=== PATIENT | male | born 1995 | race Hispanic/Latino ===

== ENCOUNTER 2019-10-23 00:14 | Inpatient (IN) | payer BC ==
[2019-10-23 00:57] LABS: Absolute Lymphocytes (CBC) 2.4 K/uL (0.7-4.9); Basophils % 0.4 % (0-1.3); Hematocrit 46.4 % (39.6-49.0); Lymphocytes % 14.3 % (15.3-44.8); MPV 8.4 fL (7.6-11.3); RBC Red Blood Cell Count 5.51 M/uL (4.33-5.43)
[2019-10-23] MEDS ORDERED: NA CHLORIDE 0.9% 1,000 ML ONE ×4 (00:59→16:23)
[2019-10-23 01:00] LABS: Protime INR 1.28
[2019-10-23] MEDS ORDERED: LORazepam 2 MG/ML VIAL ONE ×3 (01:20→13:59)
[2019-10-23 01:22] LABS: ALT/SGPT 57 U/L (12-78); AST/SGOT 25 U/L (15-37); Albumin 4.7 g/dL (3.4-5.0); Alkaline Phosphatase 135 U/L (45-117); BUN Blood Urea Nitrogen 15 mg/dL (7-18); Bicarbonate 27 mmol/L (21-32); Bilirubin Direct 0.1 mg/dL (0-0.2); Bilirubin Total 0.4 mg/dL (0.2-1.0); Creatine Phosphokinase 173 U/L (39-308); Glucose Level 132 mg/dL (74-106); Potassium 4.2 mmol/L (3.5-5.1); Protein, Total 8.9 g/dL (6.4-8.2); Sodium Level 144 mmol/L (136-145)
[2019-10-23 01:33] LABS: Urine Blood 2+ (NEG); Urine Glucose NEGATIVE (NEG); Urine Protein NEGATIVE (NEG); Urine Specific Gravity >1.030 (1.005-1.030); Urine pH 5.5 (5.0-7.0)
[2019-10-23 01:58] LABS: Barbiturates NEGATIVE (NEGATIVE); Benzodiazepines NEGATIVE (NEGATIVE); Cocaine NEGATIVE (NEGATIVE); METHAMPHETAM NEGATIVE (NEGATIVE); Methadone NEGATIVE (NEGATIVE); Opiates NEGATIVE (NEGATIVE); Phencyclidine NEGATIVE (NEGATIVE); THC Cannibis NEGATIVE (NEGATIVE)
[2019-10-23] MEDS ORDERED: AZITHROMYCIN 500 MG INJ IVPB ONE ×2 (03:24→19:54)
[2019-10-23] MEDS ORDERED: NA CHLORIDE 0.9% 250 ML ONE ×3 (03:24→19:55)
[2019-10-23] MEDS ORDERED: CEFTRIAXONE/SWI 1gm 1 GM/10 ML SYR ONE (03:25)
[2019-10-23] MEDS ORDERED: RSI MEDICATION KIT IV ONE ×2 (03:27→13:50)
[2019-10-23] MEDS ORDERED: IPRATROPIUM BROM 0.5MG/2.5ML ONE ×2 (03:29→03:31)
[2019-10-23] MEDS ORDERED: ALBUTEROL 2.5 MG/3 ML NEB SOL ONE (03:30)
--- NOTE | 2019-10-23 03:32 | ER ---
Nurse's Notes [facility] Name: Long Cobos Age: 24 yrs Sex: Male : 1995 Arrival Date: 10/23/2019 Time: 00:16 Bed 23 Private MD: Diagnosis: Altered mental Status;Substance Abuse;Bilateral Pneumonia Presentation: 10/22 00:17 Chief complaint: EMS states: pt reported smoking "k2" around 1999 this evening, pt sg became weak and lethargic, unresponsive per [facility] staff who called EMS for assistance. pt alert upon arrival, confused and unable to stand to EMS stretcher, VSS in route to facility per [facility]. Coronavirus screen: Patient denies a cough. Patient denies shortness of breath or difficulty breathing. Patient denies measured and/or subjective temperature greater than 100.4F prior to today's visit. Patient denies travel on a cruise ship or to a country the [facility] currently lists as an affected area. Patient denies contact with known and/or suspected case of COVID-19. Proceed with normal triage. Ebola Screen: Patient negative for fever greater than or equal to 101.5 degrees Fahrenheit, and additional compatible Ebola Virus Disease symptoms Patient denies exposure to infectious person. Patient denies travel to an Ebola-affected area in the 21 days before illness onset. No symptoms or risks identified at this time. Initial Sepsis Screen: Does the patient meet any 2 criteria? RR > 20 per min. HR > 90 bpm. Yes Does the patient have a suspected source of infection? No. Patient's initial sepsis screen is negative. Risk Assessment: Do you want to hurt yourself or someone else? Patient reports no desire to harm self or others. Note possible ingestion of K2 reported, no other drugs or medications reported per EMS. Onset of symptoms was October 22, 2019. Mechanism of Injury: No Mechanism of Injury. Transition of care: [facility] usp unit. 00:17 Method Of Arrival: [place] [facility] [place] 00:17 Acuity: ROSA 2 sg Historical: - Allergies: 05:12 No Known Allergies; jb4 - Home Meds: 05:12 None [Active]; jb4 - PMHx: 05:12 None; jb4 - PSHx: 05:12 None; jb4 - Immunization history:: Adult Immunizations unknown. - Social history:: Smoking status: unknown Patient uses street drugs. Screenin:20 Abuse screen: Denies threats or abuse. Nutritional screening: No deficits noted. jb4 Tuberculosis screening: No symptoms or risk factors identified. Fall Risk None identified. Assessment: 00:20 General: Appears distressed, ill, Behavior is agitated, disoriented . Pain: Unable to jb4 use pain scale. Patient is disoriented. Neuro: Level of Consciousness is awake, confused, Oriented to none The right pupil is 3 mm and reactive to light, the left pupil is 2mm and non reactive to light. Correctional officers report that the patient normally has both eyes looking forward. the left eye deviates to the left. Trauma is unknown. No signs of trauma noted.. Cardiovascular: Pt is warm, and diaphoretic.. Respiratory: Airway is patent Respiratory effort is even, unlabored, Respiratory pattern is regular, symmetrical, Breath sounds are clear bilaterally. GI: No signs and/or symptoms were reported involving the gastrointestinal system. : No signs and/or symptoms were reported regarding the genitourinary system. EENT: No signs and/or symptoms were reported regarding the EENT system. Derm: Skin is intact, Skin is diaphoretic, Skin is normal, Skin temperature is warm. Musculoskeletal: Circulation, motion, and sensation intact. Range of motion: intact in all extremities. 01:11 Reassessment: Poison Control contacted. sg 01:19 Reassessment: Jessica with poison control states treatment Seizure precautions for this patient, observe for signs of Rhabdo and NM. Recommend initial EKG, if normal may repeat later depending on condition and pt symptoms, monitor labs with emphasis on electrolytes if vomiting, cardiac monitoring, supportive care based on symptoms,may administer benzos for restlessness/seizures, observation for 3-4 hours until condition and symptoms improve then may dispo accordingly. . 02:06 Reassessment: PT is back from CT. Appears to be resting more calmly after Ativan jb4 administration. Is still disoriented. Respirations are even and unlabored. No apparent change in mental status. No s/s of pain or distress noted. Correctional officers remain at the bedside. 02:56 Reassessment: Pt still appears to be disoriented. Still will no verbally respond. Pt is jb4 now responding to yes or no questions with nods. Is now resting more calmly in bed and starting to follow commands. Suctioned pt's mouth and raised up in the bed. Crackles noted ARIS, wheezes noted to the left lung penn, respirations are even and unlabored. 03:01 Reassessment: Provider notified of change in condition. See MAR for orders. jb4 04:00 Reassessment: PT remains on bi-pap. Appears to be more agitated with mask on. Heart jb4 rate and respiratory rate remain elevated longer. Provider notified. 04:45 Reassessment: Pt taken of Bi-pap per Dr. Rider. Pt placed on 2L NC. Appears more jb4 relaxed. HR and RR decreased. RR 18/min, HR 108/min No s/s of pain or distress noted. Crackles remain ARIS, are not as prominent. Wheezing in the Left lung penn has diminished. 05:00 Reassessment: cavalry officer contacted facility medical services to obtain Pt's jb4 Medical history. Officers reports medical services states that he has no medical history or allergies. Pt remains diaphoretic however it is not as severe. PT will now open his eyes to verbal stimuli, and follows more commands. Is still in a confused stated. Shows no s/s of distress or pain, respirations remain even and unlabored. 07:00 Reassessment: RECD REPORT FROM ALANNAH CAMPBELL. PT IS ER HOLD, SEE [facility] FOR FURTHER bp DOCUMENTATION. 11:10 Reassessment: ER HOLD COMPLETE. REPORT TO MICAH CAMPBELL FOR RM 414. bp Vital Signs: 00:20 BP 143 / 100; Pulse 115; Resp 18; Temp 98.9(A); Pulse Ox 100% on R/A; jb4 01:00 BP 146 / 90; Pulse 115; Resp 17; Temp 97.6; Pulse Ox 98% on R/A; sg 02:00 BP 140 / 57; Pulse 115; Resp 18; Pulse Ox 98% on R/A; jb4 03:00 BP 148 / 76; Pulse 111; Resp 22; Pulse Ox 92% on R/A; jb4 03:30 BP 142 / 110; Pulse 112; Resp 26; Pulse Ox 100% on 30% BiPAP; jb4 04:45 BP 132 / 94; Pulse 99; Resp 18; Temp 99.5(A); Pulse Ox 97% on 2 lpm NC; jb4 ED Course: 00:16 Patient arrived in ED. cf2 00:17 Arm band placed on. sg 00:20 Patient has correct armband on for positive identification. Placed in gown. Bed in low jb4 position. Call light in reach. Side rails up X 1. quality assurance monitor body on. Pulse ox on. NIBP on. 00:22 Steffen Stevens MD is Attending Physician. 7 00:46 Anastacio Castillo, ADRIAN is Primary Nurse. jb4 01:24 Triage completed. sg 01:58 Chest Single View XRAY In Process Unspecified. EDMS 02:23 CT Head C Spine In Process Unspecified. EDMS 03:29 Lester Washington is Hospitalizing Provider. 7 05:00 No provider procedures requiring assistance completed. Patient admitted, IV remains in jb4 place. 17:12 initiated a transfer with Shanita from [facility]. eb 18:12 per Shanita from [facility]. [facility] is at capacity and have declined the eb patient in transfer. 18:48 initiated a transfer with Hannah from the [facility]. eb Administered Medications: 01:15 Drug: NS 0.9% 1000 ml Route: IV; Rate: 1000 ml; Site: left forearm; jb4 02:30 Follow up: Response: No adverse reaction; IV Status: Completed infusion; IV Intake: jb4 1000ml 01:20 Drug: Ativan 1 mg Route: IVP; Site: left forearm; jb4 02:00 Follow up: Response: No adverse reaction; Marked relief of symptoms jb4 03:15 Drug: Albuterol 2.5 mg {Note: Administered by respiratory therapist.} Route: Inhalation;jb4 04:00 Follow up: Response: No adverse reaction; Wheezing diminished jb4 03:15 Drug: AtroVENT Aerosol 0.5 mg {Note: administered by respiratory therapist..} Route: jb4 Inhalation; 04:00 Follow up: Response: No adverse reaction; Wheezing diminished jb4 03:27 Drug: Rocephin - (cefTRIAXone) 1 grams {Note: Administered slow IVP per pharmacy jb4 protocol.} Route: IVPB; Infused Over: 30 mins; Site: left forearm; 03:30 Follow up: Response: No adverse reaction; IV Status: Completed infusion; IV Intake: [id number] 03:30 Drug: AZITHromycin 500 mg Route: IVPB; Infused Over: 1 hrs; Site: left forearm; jb4 04:30 Follow up: Response: No adverse reaction; IV Status: Completed infusion; IV Intake: jb4 250ml 03:30 Drug: NS 0.9% 1000 ml Route: IV; Rate: 1 bolus; Site: left forearm; jb4 04:45 Follow up: Response: No adverse reaction; IV Status: Completed infusion; IV Intake: jb4 1000ml Intake: 02:30 IV: 1000ml; Total: 1000ml. jb4 03:30 IV: 10ml; Total: 1010ml. jb4 04:30 IV: 250ml; Total: 1260ml. jb4 04:45 IV: 1000ml; Total: 2260ml. jb4 Outcome: 03:31 Decision to Hospitalize by Provider. mh7 05:00 Admitted to ER Hold. Please see [facility] for further documentation. jb4 05:00 Condition: improved 05:00 Discharge instructions given to police, Instructed on the need for admit. 10/23 05:52 Patient left the ED. sg Signatures: Dispatcher [employer] EDMS Jesus Rios RN RN sg Bryson, James, RN RN 4 Rajendra Sanz RN RN bp Botello, Elizabeth eb Frazier, Celesta 2 Steffen Stevens MD MD 7 Corrections: (The following items were deleted from the chart) 10/22 01:38 01:11 Neuro: Level of Consciousness is awake, confused, Oriented to none jb4 4 01:11 General: Appears distressed, ill, Behavior is agitated, disoriented . jb4 4 01:11 Pain: Unable to use pain scale. Patient is disoriented. jb4 4 01:11 Cardiovascular: Pt is warm, and diaphoretic.. jb4 4 01:11 Respiratory: Airway is patent Respiratory effort is even, unlabored, Respiratory 4 pattern is regular, symmetrical, Breath sounds are clear bilaterally. jb4 01:11 GI: No signs and/or symptoms were reported involving the gastrointestinal system. jb4 jb4 01:11 : No signs and/or symptoms were reported regarding the genitourinary system. [id number] 01:11 EENT: No signs and/or symptoms were reported regarding the EENT system. jb4 jb4 01:11 Derm: Skin is intact, Skin is diaphoretic, Skin is normal, Skin temperature is jb4 warm jb4 01:11 Musculoskeletal: Circulation, motion, and sensation intact. Range of motion: jb4 intact in all extremities, jb4 01:11 Neuro: Level of Consciousness is awake, confused, Oriented to none The right jb4 pupil is 3 mm and reactive to light, the left pupil is 2mm and non reactive to light. Correctional officers report that the patient normally has both eyes looking forward. the left eye deviates to the left. Trauma is unknown.. jb4 04:53 02:56 Reassessment: Pt still appears to be disoriented. Still will no verbally respond. jb4 Pt is now responding to yes or no questions with nods. Is now resting more calmly in bed and starting to follow commands. Suctioned pt's mouth and raised up in the bed. Crackles noted ARIS, respirations are even and unlabored. jb4 01:11 Allergies: Unable to obtain; jb4 4 :12 01:11 Home Meds: Unable to obtain; jb4 4 01:11 PMHx: Unable to obtain; jb4 4 01:11 PSHx: Unable to obtain; jb4 4 :16 05:00 Reassessment: cavalry officer contacted facility medical services to obtain rea Pt's Medical history. Officers reports medical services states that he has no medical history or allergies. jb4 :19 00:20 Neuro: Level of Consciousness is awake, confused, Oriented to none The right jb4 pupil is 3 mm and reactive to light, the left pupil is 2mm and non reactive to light. Correctional officers report that the patient normally has both eyes looking forward. the left eye deviates to the left. Trauma is unknown.. jb4
--- NOTE | 2019-10-23 03:32 | EDPHYS ---
Physician Documentation [facility] Name: Long Cobos Age: 24 yrs Sex: Male : 1995 Arrival Date: 10/23/2019 Time: 00:16 Bed 23 Private MD: ED Physician Steffen Stevens HPI: 10/22 01:10 This 24 yrs old Male presents to ER via Unassigned with complaints of Possible mh7 Overdose. 01:10 The patient presents to the emergency department with a possible poisoning, synthetic mh7 cannabinoids. Context: Method: the patient has a confirmed or suspected inhalation, synthetic cannabinoid, Time: at 20:00, Extent: the OD/poisoning occurred at [facility], and was witnessed no one, Psychiatric history: it is unknown whether or not the patient has an antecedent psychiatric history, Previous OD/poisoning history: It is unknown if the patient has had similar previous episodes. Associated signs and symptoms: Pertinent positives: altered mental status. Severity of symptoms: At their worst the symptoms were moderate today, in the emergency department the symptoms are unchanged. Historical: - Allergies: 05:12 No Known Allergies; jb4 - Home Meds: 05:12 None [Active]; jb4 - PMHx: 05:12 None; jb4 - PSHx: 05:12 None; jb4 - Immunization history:: Adult Immunizations unknown. - Social history:: Smoking status: unknown Patient uses street drugs. ROS: 01:10 Unable to obtain ROS due to altered mental status. 7 Exam: 01:10 Head/Face: Normocephalic, atraumatic. mh7 01:10 ENT: Nares patent. No nasal discharge, no septal abnormalities noted. Tympanic membranes are normal and external auditory canals are clear. Oropharynx with no redness, swelling, or masses, exudates, or evidence of obstruction, uvula midline. Mucous membranes moist. Neck: Trachea midline, no thyromegaly or masses palpated, and no cervical lymphadenopathy. Supple, full range of motion without nuchal rigidity, or vertebral point tenderness. No Meningismus. Chest/axilla: Normal chest wall appearance and motion. Nontender with no deformity. No lesions are appreciated. 01:10 Respiratory: Lungs have equal breath sounds bilaterally, clear to auscultation and percussion. No rales, rhonchi or wheezes noted. No increased work of breathing, no retractions or nasal flaring. Abdomen/GI: Soft, non-tender, with normal bowel sounds. No distension or tympany. No guarding or rebound. No evidence of tenderness throughout. Back: No spinal tenderness. No costovertebral tenderness. Full range of motion. Skin: Warm, dry with normal turgor. Normal color with no rashes, no lesions, and no evidence of cellulitis. MS/ Extremity: Pulses equal, no cyanosis. Neurovascular intact. Full, normal range of motion. 01:10 Constitutional: The patient appears awake, diaphoretic, Appears intoxicated 01:10 Eyes: 01:10 Cardiovascular: Rate: tachycardic, Rhythm: regular, Pulses: no pulse deficits are appreciated, Heart sounds: normal, normal S1and S2, Edema: is not appreciated, JVD: is not appreciated. 01:10 Neuro: Orientation: unable to test, AMS, Mentation: unable to test, AMS, Memory: unable to test, AMS, Cranial nerves: unable to test, AMS, Cerebellar function: unable to test, AMS, Motor: moves all fours, Sensation: is normal, Gait: not tested. seizure activity, is not displayed by the patient, Abnormal movements: there are no abnormal movements. 01:10 Psych: Behavior/mood is uncooperative, AMS. Vital Signs: 00:20 BP 143 / 100; Pulse 115; Resp 18; Temp 98.9(A); Pulse Ox 100% on R/A; jb4 01:00 BP 146 / 90; Pulse 115; Resp 17; Temp 97.6; Pulse Ox 98% on R/A; sg 02:00 BP 140 / 57; Pulse 115; Resp 18; Pulse Ox 98% on R/A; jb4 03:00 BP 148 / 76; Pulse 111; Resp 22; Pulse Ox 92% on R/A; jb4 03:30 BP 142 / 110; Pulse 112; Resp 26; Pulse Ox 100% on 30% BiPAP; jb4 04:45 BP 132 / 94; Pulse 99; Resp 18; Temp 99.5(A); Pulse Ox 97% on 2 lpm NC; jb4 MDM: 00:23 Patient medically screened. [facility] 03:27 Differential diagnosis: Ingestion/exposure to unknown substance polypharmacy, over mh7 medication, hypoglycemia, closed head injury, intracranial hemorrhage, Substance Abuse. Data reviewed: vital signs, nurses notes, EMS record, lab test result(s), cardiac enzymes, CBC, drug level(s), electrolytes, urinalysis, urine drug screen, EKG, radiologic studies, CT scan, plain films. Data interpreted: Pulse oximetry: on room air is 98 %. Interpretation: normal. Plan: will initiate a nebulizer treatment. Counseling: I had a detailed discussion with the patient and/or guardian regarding: the historical points, exam findings, and any diagnostic results supporting the discharge/admit diagnosis, the presence of at least one elevated blood pressure reading (>120/80) during this emergency department visit, lab results, the need for further work-up and treatment in the hospital. 14:07 ED course: Patient found to have acute deterioration. RN notified medical staff. jr8 Patient after being assessed appears to be acutely seizing and no longer maintaining patent airway. Anti seizure medications were given along with intubating patient. Patient now stabilized and doing better. Hospitalist team notified and also present in ED for intubation . 10/22 00:23 Order name: Acetaminophen; Complete Time: 10/22 00:23 Order name: Basic Metabolic Panel; Complete Time: 10/22 00:23 Order name: CBC with Diff; Complete Time: 10/22 00:23 Order name: ETOH Level; Complete Time: 10/22 00:23 Order name: Hepatic Function; Complete Time: 10/22 00:23 Order name: PT-INR; Complete Time: 10/22 00:23 Order name: Ptt, Activated; Complete Time: 10/22 00:23 Order name: Salicylate; Complete Time: 10/22 00:23 Order name: Urine Drug Screen; Complete Time: 02:00 10/22 00:50 Order name: Creatine Phosphokinase; Complete Time: : EDMS 10/22 00:50 Order name: Troponin (emerg Dept Use Only); Complete Time: 02:53 10/22 01:20 Order name: Urine Dipstick--Ancillary (enter results); Complete Time: 01:34 tt3 10/22 03:00 Order name: Influenza Screen (a \T\ B); Complete Time: 08:12 7 10/22 00:23 Order name: CT Head C Spine [facility] 10/22 01:34 Order name: Chest Single View XRAY [facility] 10/22 03:00 Order name: COVID-19; Complete Time: 14:16 [facility] 10/22 06:54 Order name: T4 Free; Complete Time: 08:12 EDMS 10/22 06:54 Order name: Thyroid Stimulating Hormone; Complete Time: 08:12 EDMS 10/22 14:16 Order name: XRAY Chest (1 view) [facility] 10/22 14:32 Order name: ABG Arterial Blood Gas; Complete Time: 15:52 EDMS 10/22 15:08 Order name: RAD; Complete Time: 15:52 EDMS 10/23 00:42 Order name: Glucose, Ancillary Testing [facility] 10/22 00:23 Order name: EKG; Complete Time: 00:24 [facility] 10/22 00:23 Order name: EKG - Nurse/Tech; Complete Time: 01:27 [facility] 10/22 00:23 Order name: IV Saline Lock; Complete Time: 01:27 [facility] 10/22 00:23 Order name: Labs collected and sent; Complete Time: 01:27 7 10/22 00:23 Order name: Urine Dipstick-Ancillary (obtain specimen); Complete Time: 01:7 Administered Medications: 01:15 Drug: NS 0.9% 1000 ml Route: IV; Rate: 1000 ml; Site: left forearm; jb4 02:30 Follow up: Response: No adverse reaction; IV Status: Completed infusion; IV Intake: jb4 1000ml 01:20 Drug: Ativan 1 mg Route: IVP; Site: left forearm; jb4 02:00 Follow up: Response: No adverse reaction; Marked relief of symptoms jb4 03:15 Drug: Albuterol 2.5 mg {Note: Administered by respiratory therapist.} Route: Inhalation;jb4 04:00 Follow up: Response: No adverse reaction; Wheezing diminished jb4 03:15 Drug: AtroVENT Aerosol 0.5 mg {Note: administered by respiratory therapist..} Route: jb4 Inhalation; 04:00 Follow up: Response: No adverse reaction; Wheezing diminished jb4 03:27 Drug: Rocephin - (cefTRIAXone) 1 grams {Note: Administered slow IVP per pharmacy [facility] protocol.} Route: IVPB; Infused Over: 30 mins; Site: left forearm; 03:30 Follow up: Response: No adverse reaction; IV Status: Completed infusion; IV Intake: [id number] 03:30 Drug: AZITHromycin 500 mg Route: IVPB; Infused Over: 1 hrs; Site: left forearm; jb4 04:30 Follow up: Response: No adverse reaction; IV Status: Completed infusion; IV Intake: jb4 250ml 03:30 Drug: NS 0.9% 1000 ml Route: IV; Rate: 1 bolus; Site: left forearm; jb4 04:45 Follow up: Response: No adverse reaction; IV Status: Completed infusion; IV Intake: jb4 1000ml Disposition: 10/23 06:06 Co-signature as Attending Physician, Steffen Stevens MD. mh7 Disposition: 10/23/19 03:31 Hospitalization ordered by Lester Washington for Inpatient Admission. Preliminary diagnosis are Altered mental Status, Substance Abuse, Bilateral Pneumonia. - Bed requested for [facility] ER HOLD. - Status is Inpatient Admission. sg - Condition is Fair. - Problem is new. - Symptoms are unchanged. Signatures: Dispatcher [employer] EDJesus Porter RN RN Matthew Nicolas PA PA jr8 Richelle Yost RN RN Anastacio Castillo RN RN jbAminta Parra Maurice, MD MD mh7 Corrections: (The following items were deleted from the chart) 10/22 00:50 00:31 CREATINE PHOSPHOKINASE+C.LAB.BRZ ordered. [facility] 05:12 01:11 Allergies: Unable to obtain; [facility] jb 05:12 01:11 Home Meds: Unable to obtain; [facility] jb 05:12 01:11 PMHx: Unable to obtain; [facility] jb4 05:12 01:11 PSHx: Unable to obtain; [facility] 05:33 03:31 Hospitalization Ordered by Lester Washington for Inpatient Admission. Preliminary cg diagnosis is Altered mental Status; Substance Abuse; Bilateral Pneumonia. Bed requested for Telemetry/MedSurg (Inpatient). Status is Inpatient Admission. Condition is Fair. Problem is new. Symptoms are unchanged. [facility] 10:48 05:33 10/23/2019 03:31 Hospitalization Ordered by Lester Washington for Inpatient eb Admission. Preliminary diagnosis is Altered mental Status; Substance Abuse; Bilateral Pneumonia. Bed requested for [facility] ER HOLD. Status is Inpatient Admission. Condition is Fair. Problem is new. Symptoms are unchanged. cg 11:49 10:48 10/23/2019 03:31 Hospitalization Ordered by Lester Washington for Inpatient eb Admission. Preliminary diagnosis is Altered mental Status; Substance Abuse; Bilateral Pneumonia. Bed requested for Telemetry/MedSurg (Inpatient). Status is Inpatient Admission. Condition is Fair. Problem is new. Symptoms are unchanged. eb 11:54 11:49 10/23/2019 03:31 Hospitalization Ordered by Lester Washington for Inpatient eb Admission. Preliminary diagnosis is Altered mental Status; Substance Abuse; Bilateral Pneumonia. Bed requested for [facility] ER HOLD. Status is Inpatient Admission. Condition is Fair. Problem is new. Symptoms are unchanged. eb 10/23 05:52 10/22 11:54 10/23/2019 03:31 Hospitalization Ordered by Lester Washington for Inpatient sg Admission. Preliminary diagnosis is Altered mental Status; Substance Abuse; Bilateral Pneumonia. Bed requested for [facility] ER HOLD. Status is Inpatient Admission. Condition is Fair. Problem is new. Symptoms are unchanged. eb
--- NOTE | 2019-10-23 04:53 | P.HP ---
Certification for Inpatient Patient admitted to: Inpatient With expected LOS: >2 Midnights Practitioner: I am a practitioner with admitting privileges, knowledge of patient current condition, hospital course, and medical plan of care. Services: Services provided to patient in accordance with Admission requirements found in Title 42 Section 412.3 of the Code of Federal Regulations Patient History Date of Service: 10/23/19 Reason for admission: Altered mental status History of Present Illness: 24-year-old gentleman was brought in from the correction facility due to altered mental status. Patient is reported to have smoked a synthetic marijuana (k2). He was found confused and diaphoretic. His oxygen saturation was 89% on room air. Patient was brought to the emergency department to be evaluated. He was still confused in the ED and during my examination. Chest x-ray shows hazy bilateral infiltrates. Patient was hyperventilating during my examination. He has leukocytosis and he is tachycardic. Toxicology screen was negative. Patient is admitted for further management. - Past Medical/Surgical History -: None - Family History Family History: Reviewed- Non-Contributory (Unable to obtain due to AMS) - Social History Alcohol use: No CD- Drugs: Yes Review of Systems is unable to be obtained (Due to altered mental status) Physical Examination - Physical Exam General: Mild distress, Confused HEENT: PERRLA, Mucous membr. moist/pink, Sclerae nonicteric Neck: Supple, JVD not distended Respiratory: Clear to auscultation bilaterally, Normal air movement Cardiovascular: No edema, Normal S1 S2, Other (Tachycardia) Gastrointestinal: Normal bowel sounds, Soft and benign, No tenderness Musculoskeletal: No swelling, No erythema Integumentary: Other (Tattoos all over his body) Neurological: Other (Confused. He moves all extremities. Nonfocal.) - Studies Laboratory Data (last 24 hrs) 10/23/19 00:30: PT 15.0 H, INR 1.28, APTT 32.0 10/23/19 00:30: WBC 16.5 H, Hgb 15.9, Hct 46.4, Plt Count 351 10/23/19 00:30: Sodium 144, Potassium 4.2, BUN 15, Creatinine 1.04, Glucose 132 H, Total Bilirubin 0.4, AST 25, ALT 57, Alkaline Phosphatase 135 H Assessment and Plan - Problems (Diagnosis) (1) Metabolic encephalopathy Current Visit: Yes Status: Acute (2) Marijuana abuse Current Visit: Yes Status: Acute (3) Viral pneumonia Current Visit: Yes Status: Acute (4) Acute respiratory failure with hypoxia Current Visit: Yes Status: Acute - Plan Admit to ICU Supportive measures with IV hydration. IV dexamethasone IV Zithromax Supplemental oxygen Intermittent BiPAP as needed. Neurochecks. - Advance Directives Does patient have a Living Will: No Does patient have a Durable POA for Healthcare: No
[2019-10-23] MEDS ORDERED: ACETAMINOPHEN 500 MG TAB PO PRN (05:55)
[2019-10-23] MEDS: NA CHLORIDE 0.9% 1,000 ML IV SCH ×2 (05:55→13:55)
[2019-10-23] MEDS ORDERED: LORazepam 2 MG/ML VIAL IV PRN (05:55)
[2019-10-23 06:19] VITALS: BMI 25.3
[2019-10-23 06:54] LABS: Thyroid Stimulating Hormone 1.4 uIU/mL (0.360-3.740)
[2019-10-23] MEDS ORDERED: ENOXAPARIN 40 MG/0.4 ML SQ SCH (09:00)
[2019-10-23] MEDS ORDERED: CEFTRIAXONE 1 GM/NS 50 ML 1 GM/50 ML BAG IV SCH (09:00)
[2019-10-23] MEDS: dexAMETHasone 4 MG/ML VIAL IV SCH ×2 (09:00→17:58)
[2019-10-23] MEDS ORDERED: dexAMETHasone 10 MG/ML VIAL IV SCH (09:00)
[2019-10-23] MEDS ORDERED: ENOXAPARIN 40 MG/0.4 ML SQ ONE (09:45)
[2019-10-23] MEDS ORDERED: dexAMETHasone 4 MG/ML VIAL ONE ×2 (09:45→18:05)
[2019-10-23] MEDS ORDERED: MIDAZOLAM HCL 100 MG in NA CHLORIDE 0.9% 80 ML IV PRN (13:58)
[2019-10-23] MEDS ORDERED: propofoL 1,000 MG/100 ML VIAL IV ONE ×2 (14:02→18:05)
[2019-10-23] MEDS ORDERED: FOSPHENYTOIN PE 500 MG/10 ML VIAL ONE (14:02)
[2019-10-23] MEDS ORDERED: levETIRAcetam 1,000 MG in NA CHLORIDE 0.9% 100 ML IV ONE (14:15)
[2019-10-23 14:25] LABS: Blood Gas Oxyhemoglobin 97.9 % (94-97); Blood O2 Saturation 99.5 % (92-98.5)
--- NOTE | 2019-10-23 15:07 | RAD REPORT ---
EXAM DESCRIPTION: Johana Single View10/23/2019 2:27 pm CLINICAL HISTORY: Device placement endotracheal tube placement IMPRESSION: An endotracheal tube has been inserted with its tip 4 centimeters above the vidhi.
--- NOTE | 2019-10-23 15:25 | EKG ---
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
[2019-10-23] MEDS ORDERED: ROCURONIUM 50 MG/5 ML VIAL IV ONE (16:03)
[2019-10-23] MEDS ORDERED: ETOMIDATE 20 MG/10 ML VIAL IV ONE (16:03)
[2019-10-23] MEDS ORDERED: PHENOBARBITAL 130 MG/ML INJ IV ONE (16:31)
[2019-10-23] MEDS ORDERED: NA CHLORIDE 0.9% 50 ML IV ONE (16:32)
--- NOTE | 2019-10-23 17:24 | RAD REPORT ---
EXAM DESCRIPTION: CT - [id number] - 10/23/2019 7:04 am CLINICAL HISTORY: AMS COMPARISON: None available TECHNIQUE: Axial CT of the head obtained from the skull apex to the skull base without contrast. Axi al CT images of the cervical spine obtained from the skull base through the thoracic inlet. Sagittal and coronal reformatted images available. FINDINGS: CT head: No acute intracranial hemorrhage identified. Nonspecific hypodensity involving the white matter media l temporal lobe and occipital region. The ventricular system is unremarkable. No significant mass eff ect or midline shift. No acute abnormalities of the supratentorial white matter, basal ganglia, cereb ellum, or brainstem. The visualized paranasal sinuses and the mastoids are clear. No skull fracture identified. Visual ized orbits and globes are unremarkable. Cervical CT: Straightening of the cervical lordosis may be secondary to patient positioning. The atlantoaxial, a tlantodental, and occipitoatlantal intervals are preserved. No fracture identified. Vertebral body height preserved. Prevertebral soft tissues are unremarkable. Intervertebral disc height preserved. Visualized skull base is intact. No fracture of the visualized facial bones. Visualized mastoid air c ells and paranasal sinuses are well aerated. Visualized thyroid is unremarkable. No cervical lymphadenopathy. No pneumothorax in the visualized lung apices. IMPRESSION: 1. No acute intracranial hemorrhage. 2. Nonspecific white matter hypodensity in the medial temporal and occipital lobes. This could be s een with posterior reversible encephalopathy syndrome (PRES) or encephalitis. Acute ischemia could produce this appearance as well. Contrast-enhanced MRI recommended for more complete characterization . 3. No acute fracture or subluxation of the cervical spine. Urgent finding reported to Dr. BERNABE MEJIAS at 10/23/2019 2:42 AM CDT This exam was performed according to our departmental dose-optimization program, which includes autom ated exposure control, adjustment of the mA and/or kV according to patient size and/or use of iterati ve reconstruction technique. Electronically signed by: Randy Medley 10/23/2019 2:43 AM CDT Due to temporary technical issues with the PACS/Fluency reporting system, reports are being signed by the in house radiologist without review as a courtesy to ensure prompt reporting. The interpreting r adiologist is fully responsible for the content of the report.
--- NOTE | 2019-10-23 17:25 | RAD REPORT ---
EXAM DESCRIPTION: RAD - Chest Single View - 10/23/2019 1:58 am CLINICAL HISTORY: AMS COMPARISON: None. FINDINGS: Single frontal view of the chest. Cardiomediastinal silhouette: Normal size and contour. Lungs: Low lung volumes. Bilateral perihilar and basilar opacities. No pneumothorax. Bones: No acute osseous abnormality. Upper abdomen: No abnormality identified. IMPRESSION: 1. Bilateral perihilar and bibasilar opacities could be seen with bilateral bronchopneum onia or may be related to low lung volumes and atelectasis. Electronically signed by: Randy Medley 10/23/2019 3:17 AM CDT Due to temporary technical issues with the PACS/Fluency reporting system, reports are being signed by the in house radiologist without review as a courtesy to ensure prompt reporting. The interpreting r adiologist is fully responsible for the content of the report.
[2019-10-23] MEDS: propofoL 1,000 MG/100 ML VIAL IV PRN (17:58)
[2019-10-23] MEDS ORDERED: CEFTRIAXONE 1000 MG/VIAL ONE (19:54)
--- NOTE | 2019-10-23 20:39 | CON ---
Reason For Consultation: Consultation called because of seizure. History Of Present Illness: Mr. Cobos is a 24-year-old patient, who is in a corrections facility and reportedly was brought to [facility] with altered mental status due to ingestio n of synthetic marijuana, otherwise on a Spice or K2. He was reportedly found confused, diaphoretic, oxygen saturation was down to 89% and he was brought to [facility]. While in hospital, he apparently developed significant seizures and could not protect his airway. He was intubated, given propofol, Keppra, and benzodiazepines to achieve seizure control. His blood work showed leukocytosis , tachycardia, and chest x-ray showed bilateral infiltrates. It is also considered possible he has C OVID-19. There are 2 corrections officers outside the patient's room. At the time of my evaluation, the patient was actually in the room, intubated, and as noted, he does appear to be a candidate for COVID-19 and is a person under investigation. Past Medical History: Unable to obtain. Family History: Unobtainable. Social History: Reportedly using drugs in halfway. Review of Systems: Not possible at this time. Physical Examination: Vital Signs: Blood pressure 132/77, pulse 85, respiratory rate 16, temperature 99.5, oxygen saturati on of 95% on FiO2 of 40, weight 162 pounds, height 5 feet 7 inches, BMI 25.4. General: As mentioned, Mr. Cobos is intubated, sedated, and not moving spontaneously due to the s edation. Examination at this point not possible due to the patient receiving propofol and is just intubated an d not spontaneously moving arms and legs. Laboratory Studies: White blood cell count 16.5 with 78.3% neutrophils, hemoglobin and hematocrit no rmal. INR 1.28. His blood gas just after intubation, pH 7.34, pCO2 46.2, and PO2 213. Chemistries show glucose of 132, chloride 109. Alkaline phosphatase is slightly elevated to 135. Thyroid functi on studies are normal. Urinalysis shows 2+ blood and toxicology in the urine showed alcohol less teddy n 10, salicylate is less than 1.7, and acetaminophen less than 2. His head and cervical spine CT sca n showed no acute ischemic or hemorrhagic change. However, there were nonspecific white matter hypod ensities noted in the medial, temporal, and occipital lobes. It is noted that this may be seen with a reversible encephalopathy syndrome or encephalitis. Also noted that acute ischemia may have this a ppearance. He has not yet had a repeat imaging study and his chest x-ray again as mentioned above sh owed bilateral opacifications. His electrocardiogram showed sinus tachycardia with possible left atr ial enlargement, rate was 143. Assessment: Mr. Cobos is a 24-year-old patient with seizures, likely secondary to the synthetic m arijuana, Spice or K2. He is intubated, sedated after multiple seizures, and has received Keppra jeanne d. He is also on Rocephin and azithromycin. He actually has Keppra 750 mg IV. He was loaded with K eppra in the emergency room and then continued on Keppra. After admission, he may have as soon as po ssible MRI of the brain and routine electroencephalogram. PAUL/TARAS Voice ID: [id number] Report ID: [id number]
[2019-10-23] MEDS ORDERED: AZITHROMYCIN IV 500 MG in NA CHLORIDE 0.9% 250 ML IVPB SCH (21:00)
[2019-10-23] MEDS ORDERED: levETIRAcetam 750 MG in NA CHLORIDE 0.9% 100 ML IV SCH (21:00)
[2019-10-23] MEDS ORDERED: CEFTRIAXONE/SWI 1gm 1 GM/10 ML SYR IV SCH (21:00)
--- NOTE | 2019-10-23 21:25 | P.PN ---
Subjective Date of Service: 10/23/19 Chief Complaint: Altered mental status Physical Examination - Vital Signs Temperature: 98.6 F Blood Pressure: 133/79 Pulse: 74 Respirations: 14 Pulse Ox (%): 100 - Studies Laboratory Data (last 24 hrs) 10/23/19 00:30: PT 15.0 H, INR 1.28, APTT 32.0 10/23/19 00:30: WBC 16.5 H, Hgb 15.9, Hct 46.4, Plt Count 351 10/23/19 00:30: Sodium 144, Potassium 4.2, BUN 15, Creatinine 1.04, Glucose 132 H, Total Bilirubin 0.4, AST 25, ALT 57, Alkaline Phosphatase 135 H Microbiology Data (last 24 hrs): 10/23/19 04:00 Nasopharnyx Coronavirus COVID-19 PCR - Final 10/23/19 04:00 Nasopharnyx Influenza Type A Antigen Screen - Final 10/23/19 04:00 Nasopharnyx Influenza Type B Antigen Screen - Final Assessment And Plan Physician Review Additional Text: Patient was noticed to have tonic clonic episodes with altered mental status . Ativan was given Had to be intubated for airway protection Started on Propofol drip Patient was also started on keppra with loading dose As he continues to have seizure , phenobarbitone was given Ordered MRI , EEG , Neurology consult No EEG present at this time Initiated Transfer [facility] declined due to capacity Will initiate transfer to [facility]
[2019-10-23 22:03] VITALS: O2SAT 100
[2019-10-24] MEDS: dexAMETHasone 4 MG/ML VIAL IV SCH (00:15)
[2019-10-24] MEDS ORDERED: dexAMETHasone 4 MG/ML VIAL ONE (00:23)
[2019-10-24] MEDS: NA CHLORIDE 0.9% 1,000 ML IV SCH (02:10)
[2019-10-24] MEDS: propofoL 1,000 MG/100 ML VIAL IV PRN (02:10)
[2019-10-24] MEDS ORDERED: NA CHLORIDE 0.9% 1,000 ML ONE (02:19)
[2019-10-24] MEDS ORDERED: propofoL 1,000 MG/100 ML VIAL IV ONE (02:19)
[2019-10-24 05:34] VITALS: BP 122/78; TEMP 97.3
--- NOTE | 2019-10-24 08:22 | P.DS ---
Admission Date: 10/23/19 Discharge Date: 10/24/19 Disposition: [facility] Discharge Condition: SERIOUS Reason for Admission: Altered mental status - Problems (1) Metabolic encephalopathy Current Visit: Yes Status: Acute (2) Marijuana abuse Current Visit: Yes Status: Acute (3) Viral pneumonia Current Visit: Yes Status: Acute (4) Acute respiratory failure with hypoxia Current Visit: Yes Status: Acute (5) Seizure Current Visit: Yes Status: Acute Brief History of Present Illness: 24-year-old gentleman was brought in from the correction facility due to altered mental status. Patient is reported to have smoked a synthetic marijuana (k2). He was found confused and diaphoretic. His oxygen saturation was 89% on room air. Patient was brought to the emergency department to be evaluated. He was still confused in the ED and during my examination. Chest x-ray shows hazy bilateral infiltrates. Patient was hyperventilating during my examination. He has leukocytosis and he is tachycardic. Toxicology screen was negative. Patient was admitted for further management. Hospital Course: Patient was admitted to the ICU for supportive measures and close monitoring. He developed seizures. CT head reviewed and reported areas of hypodensity consistent with encephalitis vs PRES. Patient needed multiple antiseizure medications to control his seizures. He was intubated for airway protection and put on mechanical ventilation. He was also started on propofol drip. He received a dose of fosphenytoin, phenobarbital and a loading dose of Keppra, and later maintained with Keppra 750 mg bid. Patient was seen and evaluated by n eurology Dr. Henderson. It was recommended patient to be transferred to a facility with Neuro ICU and risk specialist. Patient was accepted for transfer to [facility]. His vitals were stable at the time of transfer. Vital Signs/Physical Exam: Temp Pulse Resp BP Pulse Ox 97.3 F 67 14 122/78 100 10/24/19 05:00 10/24/19 05:00 10/24/19 05:00 10/24/19 05:00 10/24/19 05:00 Laboratory Data at Discharge: WBC Cancelled 10/24/19 05:00 Hgb Cancelled 10/24/19 05:00 Hct Cancelled 10/24/19 05:00 Plt Count Cancelled 10/24/19 05:00 PT 15.0 SECONDS (9.5-12.5) H 10/23/19 00:30 INR 1.28 10/23/19 00:30 APTT 32.0 SECONDS (24.3-36.9) 10/23/19 00:30 Sodium Cancelled 10/24/19 05:00 Potassium Cancelled 10/24/19 05:00 BUN Cancelled 10/24/19 05:00 Creatinine Cancelled 10/24/19 05:00 Glucose Cancelled 10/24/19 05:00 Phosphorus Cancelled 10/24/19 05:00 Magnesium Cancelled 10/24/19 05:00 Total Bilirubin Cancelled 10/24/19 05:00 AST Cancelled 10/24/19 05:00 ALT Cancelled 10/24/19 05:00 Alkaline Phosphatase Cancelled 10/24/19 05:00 Home Medications: NK [No Home Meds] 10/23/19
== END 2019-10-24 06:00 | disposition short-term general hospital (02) | DRG 917 ==
LOC: ER 00:14 → ERHOLD 05:04 → 4TH 11:12 → ERHOLD 11:12
PROVIDERS: ADMIT Internal Medicine; ATTEND Internal Medicine
PROC: 5A1935Z Respiratory Ventilation, Less than 24 Consecutive Hours (ICD-10-PCS; principal; 2019-10-23)
PROC: 0BH17EZ Insertion of Endotracheal Airway into Trachea, Via Natural or Artificial Opening (ICD-10-PCS; 2019-10-23)
DX: T40.7X1A Poisoning by cannabis (derivatives), accidental (unintentional), initial encounter (principal); J12.9 Viral pneumonia, unspecified; G93.41 Metabolic encephalopathy; J96.01 Acute respiratory failure with hypoxia; I67.83 Posterior reversible encephalopathy syndrome; G04.90 Encephalitis and encephalomyelitis, unspecified; G40.409 Other generalized epilepsy and epileptic syndromes, not intractable, without status epilepticus; D72.829 Elevated white blood cell count, unspecified; R00.0 Tachycardia, unspecified; F12.10 Cannabis abuse, uncomplicated; Z11.59 Encounter for screening for other viral diseases; R41.82 Altered mental status, unspecified; I99.8 Other disorder of circulatory system
CPT/HCPCS: 36415; 70450; 71045; 72125; 80048; 80076; 80307; 80320; 80329; 81003; 82550; 82805; 82947; 84439; 84443; 84484; 85025; 85610; 85730; 87804; 93005; 94002; 94003; 94660; 96361; 96365; 96375; 99285; J0456; J0696; J1650; J1953; J2250; J2560; J2704; J7030; J7050; Q2009; U0002